=== PATIENT | male | born 1950 | race Caucasian/White ===

== ENCOUNTER 2020-08-04 09:14 | Outpatient (REF) | payer MEDICARE, SELFPAY ==
[2020-08-04 11:24] LABS: Prostate Specific Antigen < 0.05 ng/mL (<0.05-4.0)
== END 2020-08-04 09:15 | disposition home or self-care (01) ==
LOC: HO.10HDL 09:14
PROVIDERS: Visit Provider Urology
DX: C61 Malignant neoplasm of prostate (principal); Z12.5 Encounter for screening for malignant neoplasm of prostate
CPT/HCPCS: 84153

== ENCOUNTER 2020-10-23 09:12 | Outpatient (REF) | payer MEDICARE, SELFPAY ==
[2020-10-23 10:51] LABS: Prostate Specific Antigen < 0.05 ng/mL (<0.05-4.0)
== END 2020-10-23 09:13 | disposition home or self-care (01) ==
LOC: HO.10HDL 09:12
DX: Z12.5 Encounter for screening for malignant neoplasm of prostate (principal)
CPT/HCPCS: 36415; 84153

== ENCOUNTER 2020-11-30 08:36 | Outpatient (REF) | payer MEDICARE, SELFPAY ==
[2020-11-30 12:42] LABS: Prostate Specific Antigen < 0.05 ng/mL (<0.05-4.0)
== END 2020-11-30 08:37 | disposition home or self-care (01) ==
LOC: HO.10HDL 08:36
PROVIDERS: Visit Provider Urology
DX: Z12.5 Encounter for screening for malignant neoplasm of prostate (principal); C61 Malignant neoplasm of prostate
CPT/HCPCS: 36415; 84153

== ENCOUNTER → 2020-12-08 15:31 | Outpatient (BNVA) | payer MEDICARE, SELFPAY | PROVIDERS: PCP Family Medicine; Visit Provider Urology | DX: C61 Malignant neoplasm of prostate (principal) | CPT/HCPCS: Q3014 ==

== ENCOUNTER 2021-05-31 12:53 | Outpatient (REF) | payer MEDICARE, SELFPAY ==
[2021-05-31 15:02] LABS: Prostate Specific Antigen < 0.05 ng/mL (<0.05-4.0)
== END 2021-05-31 12:54 | disposition home or self-care (01) ==
LOC: HO.10HDL 12:53
PROVIDERS: Visit Provider Urology
DX: N13.8 Other obstructive and reflux uropathy (principal); N40.1 Benign prostatic hyperplasia with lower urinary tract symptoms; C61 Malignant neoplasm of prostate
CPT/HCPCS: 36415; 84153

== ENCOUNTER → 2021-06-08 14:36 | Outpatient (BNVA) | payer MEDICARE, SELFPAY | PROVIDERS: Visit Provider Urology | DX: C61 Malignant neoplasm of prostate (principal) | CPT/HCPCS: Q3014 ==

== ENCOUNTER 2021-11-29 08:51 | Outpatient (REF) | payer MEDICARE, SELFPAY ==
[2021-11-29 11:39] LABS: Prostate Specific Antigen < 0.05 ng/mL (<0.05-4.0)
== END 2021-11-29 08:52 | disposition home or self-care (01) ==
LOC: HO.10HDL 08:51
PROVIDERS: Visit Provider Urology
DX: Z12.5 Encounter for screening for malignant neoplasm of prostate (principal); C61 Malignant neoplasm of prostate
CPT/HCPCS: 36415; 84153

== ENCOUNTER → 2021-12-07 12:16 | Outpatient (BNVA) | payer MEDICARE, SELFPAY | PROVIDERS: PCP Family Medicine; Visit Provider Urology | DX: C61 Malignant neoplasm of prostate (principal) | CPT/HCPCS: Q3014 ==

== ENCOUNTER 2022-04-02 07:50 | Outpatient (REF) | payer MEDICARE, SELFPAY ==
[2022-04-02 09:47] LABS: Prostate Specific Antigen < 0.05 ng/mL (<0.05-4.0)
== END 2022-04-02 07:51 | disposition home or self-care (01) ==
LOC: HO.10HDL 07:50
PROVIDERS: Visit Provider Urology
DX: Z12.5 Encounter for screening for malignant neoplasm of prostate (principal); C61 Malignant neoplasm of prostate
CPT/HCPCS: 36415; 84153

== ENCOUNTER → 2022-04-10 11:21 | Outpatient (BNVA) | payer MEDICARE, SELFPAY | PROVIDERS: PCP Family Medicine; Visit Provider Urology | DX: C61 Malignant neoplasm of prostate (principal) | CPT/HCPCS: Q3014 ==

== ENCOUNTER 2022-09-30 09:19 | Outpatient (REF) | payer MEDICARE, SELFPAY ==
[2022-09-30 12:07] LABS: Prostate Specific Antigen < 0.10 ng/mL (<0.05-4.0)
== END 2022-09-30 09:20 | disposition home or self-care (01) ==
LOC: HO.10HDL 09:19
PROVIDERS: Visit Provider Urology
DX: Z12.5 Encounter for screening for malignant neoplasm of prostate (principal); C61 Malignant neoplasm of prostate
CPT/HCPCS: 36415; 84153

== ENCOUNTER → 2022-10-09 15:17 | Outpatient (BNVA) | payer MEDICARE, SELFPAY | PROVIDERS: PCP Family Medicine; Visit Provider Urology | DX: C61 Malignant neoplasm of prostate (principal) | CPT/HCPCS: 99212 ==

== ENCOUNTER 2023-06-02 08:38 | Outpatient (REF) | payer MEDICARE, SELFPAY ==
[2023-06-02 11:29] LABS: Prostate Specific Antigen < 0.10 ng/mL (<0.05-4.0)
== END 2023-06-02 08:39 | disposition home or self-care (01) ==
LOC: HO.10HDL 08:38
PROVIDERS: Visit Provider Urology
DX: C61 Malignant neoplasm of prostate (principal); Z12.5 Encounter for screening for malignant neoplasm of prostate
CPT/HCPCS: 36415; 84153

== ENCOUNTER 2023-06-10 13:51 | Outpatient (AMB) | payer MEDICARE, SELFPAY ==
--- NOTE | 2023-06-10 14:04 | A.OFFVIS_ITS ---
Intake Intake Visit Reasons: 6M PSA(set) Intake Note: Patient is present for Follow Up PSA Urology Med: None Antibiotic Allergy: None Blood Thinner: Apixaban [facility]: [facility] Allergies acetaminophen [Percocet] Allergy (Unknown, Verified 06/10/23 14:05) Unknown ibuprofen Allergy (Unknown, Verified 06/10/23 14:05) kidney shuts down oxycodone [Percocet] Allergy (Unknown, Verified 06/10/23 14:05) Unknown bee stings Allergy (Unknown, Uncoded 06/10/23 14:05) Unknown Medication List - Last Reconciled 06/10/23 by Jem Smith MD allopurinol 300 mg PO DAILY amlodipine 15 mg PO Q OTHER DAY PRN apixaban 5 mg PO BID empagliflozin (Jardiance) 10 mg PO DAILY furosemide mg PO lisinopril 40 mg PO DAILY metformin ER 500 mg PO DAILY rosuvastatin 20 mg PO BEDTIME sotalol mg PO HPI HPI Comments History of Present Illness Details Bryan is a very pleasant male. He is a patient of Dr. Johnson. He is seen for following urologic conditions - prostate cancer PSA remains in good control <0.1 6 month follow-up Urinary control no leakage Does have CKD. Followed by Nephrology. Noted to have proteinuria. Has been placed on Jardiance. Discussed risk for urinary tract infection and importance of maintaining fluid intake Prostate cancer robotic prostatectomy January 2018 grade group 3 First diagnosed early 2017 Underwent robotic assisted laparoscopic prostatectomy at [facility] 01/30/2018 Final pathology [facility] 7 = 4+3 Follow-up PSA - 05/01 < 0.1 - 12/03 <0.1, 06/02 <0.1, 12/04 <0.1, 04/03 <0.1, 10/03 <0.1, 06/04 <0.1 Good control of PSA Continue with 6 monthly surveillance [facility] Medical History Elevated PSA Prostate cancer Retention of urine Surgical History History of prostatectomy Review of Systems Const Denies chills and Denies fever(s) Card Reports no additional complaints and Denies syncope Resp Denies cough GI Denies abdominal pain and Denies heartburn Reports as per HPI and Denies change in libido Neuro Denies syncope Psych Denies change in libido Endo Denies change in libido Physical Exam Const General: cooperative, healthy appearing, comfortable and no acute distress Orientation/consciousness: patient oriented x3 HEENT Face and sinus: Yes normal facial exam Mouth: moist mucous membranes Neck Neck: Yes normal visual inspection, Yes full ROM and Yes trachea midline Chest Chest palpation & inspection: normal inspection of the chest Resp Effort & Inspection: normal respiratory effort, able to speak in complete sentences and no respiratory distress GI Inspection: Yes normal to inspection Back/Spine/Pelvis Cervical Spine: normal cervical lordosis Thoracic/Lumbar Spine: thoracic and lumbar spine normal to inspection Skin General skin exam: no rashes or lesions noted Neuro General: patient oriented x3, gait normal, tone normal and moves all extremities Extrem General: Yes normal to inspection and Yes capillary refill normal Assessment & Plan Assessment & Plan (1) Prostate cancer: Comment: Grade group 3, robotic prostatectomy 2017 [facility] Code(s): C61 - Malignant neoplasm of prostate Plan Six month follow-up PSA Orders: Orders Prostate Specific Antigen 6 Months C61 - Malignant neoplasm of prostate Patient Instructions: Imaging studies, laboratory and physical exam results were discussed and reviewed in detail. No major barriers to patient understanding were identified. An opportunity to ask questions regarding the treatment plan was provided. All questions were answered. The patient expressed understanding and agreement with the above treatment plan. The patient is aware they should contact our office by phone for worsening of their current condition or the appearance of new urologic symptoms. Compliance is encouraged with any medications and followup testing that is ordered. It is a privilege to participate in the urologic care of your patient. If you have any questions or concerns regarding treatment for the above conditions, or other urologic issues, please do not hesitate to contact me. The office telephone contact is [phone]. This note is constructed using voice recognition software. While every effort has been made to ensure accuracy subsurface augmentee operator errors may have been included. Yours sincerely, Dr Jem Smith MD, [facility] - Urology Providers of Expert, Compassionate Care for the Genitourinary System Coding Level of Care Code Est Pt Level 3 (02542) Diagnoses Prostate cancer C61
== END 2023-06-10 14:46 | disposition home or self-care (01) ==
PROVIDERS: PCP Family Medicine; Visit Provider Urology
DX: C61 Malignant neoplasm of prostate (principal)
CPT/HCPCS: 99213

== ENCOUNTER → 2023-06-10 13:51 | Outpatient (BNVA) | payer MEDICARE, SELFPAY | PROVIDERS: Visit Provider Urology | DX: C61 Malignant neoplasm of prostate (principal) | CPT/HCPCS: 99212 ==

== ENCOUNTER 2023-11-28 11:50 | Outpatient (REF) | payer MEDICARE, SELFPAY ==
[2023-11-28 14:03] LABS: Prostate Specific Antigen < 0.10 ng/mL (<0.05-4.0)
== END 2023-11-28 11:51 | disposition home or self-care (01) ==
LOC: HO.10HDL 11:50
PROVIDERS: Visit Provider Urology
DX: C61 Malignant neoplasm of prostate (principal); Z12.5 Encounter for screening for malignant neoplasm of prostate
CPT/HCPCS: 36415; 84153

== ENCOUNTER 2023-12-10 12:44 | Outpatient (AMB) | payer MEDICARE, SELFPAY ==
--- NOTE | 2023-12-10 12:46 | A.OFFVIS_ITS ---
Intake Intake Visit Reasons: 6M PSA(set)Confirmed Intake Note: Patient presents today for a telehealth follow-up Meds- None Allergies to Antibiotic- No Known Allergies Blood Thinner- Eliquis Medications has been reviewed, and patient is unsure about doses. Kindergarten Teacher Required: No Allergies acetaminophen [Percocet] Allergy (Unknown, Verified 12/10/23 12:47) Unknown ibuprofen Allergy (Unknown, Verified 12/10/23 12:47) kidney shuts down oxycodone [Percocet] Allergy (Unknown, Verified 12/10/23 12:47) Unknown bee stings Allergy (Unknown, Uncoded 12/10/23 12:47) Unknown Medication List - Last Reconciled 12/10/23 by Jem Smith MD allopurinol 300 mg PO DAILY amlodipine 15 mg PO Q OTHER DAY PRN apixaban 5 mg PO BID empagliflozin (Jardiance) 10 mg PO DAILY furosemide mg PO lisinopril 40 mg PO DAILY metformin ER 500 mg PO DAILY rosuvastatin 20 mg PO BEDTIME HPI HPI Comments History of Present Illness Details Bryan is a very pleasant male. He is a patient of Dr. Johnson. He is seen for following urologic conditions - prostate cancer Telemedicine Evaluation 15 min Consultation Doximity Santi Video attempted PSA remains in good control <0.1 6 month follow-up Urinary control no leakage Does have CKD. Followed by Nephrology. Prostate cancer robotic prostatectomy January 2018 grade group 3 First diagnosed early 2017 Underwent robotic assisted laparoscopic prostatectomy at [facility] 01/30/2018 Final pathology [place] 7 = 4+3 Follow-up PSA - 05/01 < 0.1, 12/03 <0.1, 06/02 <0.1, 12/04 <0.1, 04/03 <0.1, 10/03 <0.1, 06/04 <0.1, 12/06 <0.1 Good control of PSA Continue with 6 monthly surveillance [facility] Medical History Prostate cancer Elevated PSA Retention of urine Surgical History History of prostatectomy Review of Systems Const All systems reviewed & are unremarkable except as noted in HPI and below Reports no additional complaints Resp Reports no additional complaints GI Reports no additional complaints Reports as per HPI Musc Reports no additional complaints Physical Exam Telemedicine evaluation Appropriate responses Regular breathing rate and rhythm HEENT Head: Yes normal to inspection Ears: hearing grossly normal bilaterally Eyes General: appearance normal, both eyes and all related structures Neck Neck: Yes normal visual inspection Chest Chest palpation & inspection: normal inspection of the chest Resp Effort & Inspection: normal respiratory effort and able to speak in complete sentences Assessment & Plan Assessment & Plan (1) Prostate cancer: Comment: Grade group 3, robotic prostatectomy 2018 [facility] Code(s): C61 - Malignant neoplasm of prostate Plan Six-month follow-up PSA Orders: Orders Prostate Specific Antigen 6 Months C61 - Malignant neoplasm of prostate Patient Instructions: Imaging studies, laboratory and physical exam results were discussed and reviewed in detail. No major barriers to patient understanding were identified. An opportunity to ask questions regarding the treatment plan was provided. All questions were answered. The patient expressed understanding and agreement with the above treatment plan. The patient is aware they should contact our office by phone for worsening of their current condition or the appearance of new urologic symptoms. Compliance is encouraged with any medications and followup testing that is ordered. It is a privilege to participate in the urologic care of your patient. If you have any questions or concerns regarding treatment for the above conditions, or other urologic issues, please do not hesitate to contact me. The office telephone contact is [phone]. This note is constructed using voice recognition software. While every effort has been made to ensure accuracy breaker machine tender errors may have been included. Yours sincerely, Dr Jem Smith MD, [facility] - Urology Providers of Expert, Compassionate Care for the Genitourinary System Telehealth Telehealth Location of provider rendering services: practice address Location of patient: address on file Patient Identification confirmed using: Name, : Yes Telehealth method: video Patient verbally consented to treatment: Yes Patient verbally consented to billing insurance company: Yes Patient informed of any privacy concerns related to visit: Yes Coding Level of Care Code Tele Est Pt Level 3 (99318) Diagnoses Prostate cancer C61
== END 2023-12-10 14:11 | disposition home or self-care (01) ==
LOC: HO.HUSH 12:45
PROVIDERS: PCP Family Medicine; Visit Provider Urology
DX: C61 Malignant neoplasm of prostate (principal)
CPT/HCPCS: 99213

== ENCOUNTER → 2023-12-10 12:44 | Outpatient (BNVA) | payer MEDICARE, SELFPAY | PROVIDERS: PCP Family Medicine; Visit Provider Urology ==

== ENCOUNTER 2024-06-04 07:40 | Outpatient (REF) | payer MEDICARE, SELFPAY ==
[2024-06-04 09:25] LABS: Prostate Specific Antigen < 0.10 ng/mL (<0.05-4.0)
== END 2024-06-04 07:41 | disposition home or self-care (01) ==
LOC: HO.LAB 07:40
PROVIDERS: PCP Internal Medicine; Visit Provider Urology
DX: C61 Malignant neoplasm of prostate (principal); Z12.5 Encounter for screening for malignant neoplasm of prostate
CPT/HCPCS: 36415; 84153

== ENCOUNTER 2024-06-11 14:07 | Outpatient (AMB) | payer MEDICARE, SELFPAY ==
--- NOTE | 2024-06-11 14:50 | A.OFFVIS_ITS ---
Intake Visit Reasons: 6m/PSA(set) Intake Note: Patient is Present for Follow Up PSA PSA Result: 06/04/24 <0.10 Urology Medication: None Antibiotic Allergies: None Blood Thinners:Apixaban Patient is on Jardiance Software Consultant Required: No Accompanied by: Self / Same As Patient Allergies acetaminophen [Percocet] Allergy (Unknown, Verified 06/11/24 14:53) Unknown ibuprofen Allergy (Unknown, Verified 06/11/24 14:53) kidney shuts down oxycodone [Percocet] Allergy (Unknown, Verified 06/11/24 14:53) Unknown bee stings Allergy (Unknown, Uncoded 06/11/24 14:53) Unknown HPI Comments Details: Bryan is a very pleasant male. He is a patient of Dr. Johnson. He is seen for following urologic conditions - prostate cancer PSA remains in good control <0.1 6 month follow-up Urinary control no leakage Does have CKD. Followed by Nephrology. Prostate cancer robotic prostatectomy January 2018 grade group 3 First diagnosed early 2017 Underwent robotic assisted laparoscopic prostatectomy at [facility] 01/30/2018 Final pathology [place] 7 = 4+3 Follow-up PSA - 05/01 < 0.1, 12/03 <0.1, 06/02 <0.1, 12/04 <0.1, 04/03 <0.1, 10/03 <0.1, 06/04 <0.1, 12/06 <0.1, 06/05 <0.1 Good control of PSA Continue with 6 monthly surveillance [facility] Medical History Prostate cancer Elevated PSA Retention of urine Surgical History History of prostatectomy Review of Systems Const Denies chills and Denies fever(s) Card Reports no additional complaints and Denies syncope Resp Denies cough GI Denies abdominal pain and Denies heartburn Reports as per HPI and Denies change in libido Neuro Denies syncope Psych Denies change in libido Endo Denies change in libido Physical Exam Const General: cooperative, healthy appearing, comfortable and no acute distress Orientation/consciousness: patient oriented x3 HEENT Face and sinus: Yes normal facial exam Mouth: moist mucous membranes Neck Neck: Yes normal visual inspection, Yes full ROM and Yes trachea midline Chest Chest palpation & inspection: normal inspection of the chest Resp Effort & Inspection: normal respiratory effort, able to speak in complete sentences and no respiratory distress GI Inspection: Yes normal to inspection Back/Spine/Pelvis Cervical Spine: normal cervical lordosis Thoracic/Lumbar Spine: thoracic and lumbar spine normal to inspection Skin General skin exam: no rashes or lesions noted Neuro General: patient oriented x3, gait normal, tone normal and moves all extremities Extrem General: Yes normal to inspection and Yes capillary refill normal Assessment & Plan Assessment & Plan (1) Prostate cancer: Comment: Grade group 3, robotic prostatectomy 2017 [facility] Code(s): C61 - Malignant neoplasm of prostate Category: Medical Plan Six-month follow-up PSA tele Orders: Orders Prostate Specific Antigen 6 Months C61 - Malignant neoplasm of prostate Patient Instructions: Imaging studies, laboratory and physical exam results were discussed and reviewed in detail. No major barriers to patient understanding were identified. An opportunity to ask questions regarding the treatment plan was provided. All questions were answered. The patient expressed understanding and agreement with the above treatment plan. The patient is aware they should contact our office by phone for worsening of their current condition or the appearance of new urologic symptoms. Compliance is encouraged with any medications and followup testing that is ordered. It is a privilege to participate in the urologic care of your patient. If you have any questions or concerns regarding treatment for the above conditions, or other urologic issues, please do not hesitate to contact me. The office telephone contact is [phone]. This note is constructed using voice recognition software. While every effort has been made to ensure accuracy integrated specialist errors may have been included. Yours sincerely, Dr Jem Smith MD, [facility] - Urology Providers of Expert, Compassionate Care for the Genitourinary System Coding Level of Care Code Est Pt Level 3 (71111) Diagnoses Prostate cancer C61
== END 2024-06-11 15:14 | disposition home or self-care (01) ==
PROVIDERS: PCP Family Medicine; Visit Provider Urology
DX: C61 Malignant neoplasm of prostate (principal)
CPT/HCPCS: 99213

== ENCOUNTER → 2024-06-11 14:07 | Outpatient (BNVA) | payer MEDICARE, SELFPAY | PROVIDERS: PCP Family Medicine; Visit Provider Urology | DX: C61 Malignant neoplasm of prostate (principal) | CPT/HCPCS: 99212 ==

== ENCOUNTER 2024-12-28 08:01 | Outpatient (REF) | payer MEDICARE, SELFPAY ==
[2024-12-28 10:54] LABS: Prostate Specific Antigen < 0.10 ng/mL (<0.05-4.0)
== END 2024-12-28 08:02 | disposition home or self-care (01) ==
LOC: HO.10HDL 08:01
PROVIDERS: Visit Provider Urology
DX: C61 Malignant neoplasm of prostate (principal); Z12.5 Encounter for screening for malignant neoplasm of prostate
CPT/HCPCS: 36415; 84153

== ENCOUNTER 2025-01-04 13:51 | Outpatient (AMB) | payer MEDICARE, SELFPAY ==
--- NOTE | 2025-01-04 13:52 | MHC.OFFVIS ---
Intake Visit Reasons: 6m/PSA Intake Note: Patient is present for 6M/PSA Urology Medication:ALLOPURINOL Antibiotic Allergy:NONE Blood Thinner:APIXABAN Optical Engineering Manager Required: No Allergies acetaminophen [Percocet] Allergy (Unknown, Verified 01/04/25 13:58) Unknown ibuprofen Allergy (Unknown, Verified 01/04/25 13:58) kidney shuts down oxycodone [Percocet] Allergy (Unknown, Verified 01/04/25 13:58) Unknown bee stings Allergy (Unknown, Uncoded 01/04/25 13:58) Unknown HPI Comments Details: Bryan is a very pleasant male. He is a patient of Dr. Johnson. He is seen for following urologic conditions - prostate cancer Telemedicine Evaluation 15 min Consultation Doximity Santi Video PSA remains in good control <0.1 Urinary control - occasional stress leakage but not serious Does have CKD. Followed by Nephrology. Prostate cancer robotic prostatectomy January 2018 grade group 3 First diagnosed early 2017 Underwent robotic assisted laparoscopic prostatectomy at [facility] 01/30/2018 Final pathology [facility] 7 = 4+3 Follow-up PSA - / < 0.1, 2/ <0.1, / <0.1, 2/ <0.1, 6/ <0.1, 10/03 <0.1, 06/04 <0.1, 2/ <0.1, 8/ <0.1, 01/04 <0.1 Good control of PSA Twelve month follow-up PSA PFSH Medical History Prostate cancer Elevated PSA Retention of urine Surgical History History of prostatectomy Review of Systems Const All systems reviewed & are unremarkable except as noted in HPI and below Reports no additional complaints Resp Reports no additional complaints GI Reports no additional complaints Reports as per HPI Musc Reports no additional complaints Physical Exam Telemedicine evaluation Appropriate responses Regular breathing rate and rhythm HEENT Head: Yes normal to inspection Ears: hearing grossly normal bilaterally Eyes General: appearance normal, both eyes and all related structures Neck Neck: Yes normal visual inspection Chest Chest palpation & inspection: normal inspection of the chest Resp Effort & Inspection: normal respiratory effort and able to speak in complete sentences Telehealth Telehealth Telehealth Platform: Tangler Location of provider rendering services: practice address Location of patient: address on file Patient Identification confirmed using: Name, : Yes Telehealth method: video Patient verbally consented to treatment: Yes Patient verbally consented to billing insurance company: Yes Patient informed of any privacy concerns related to visit: Yes Minutes spent on Phone/Video with Pt.: 15 Assessment & Plan Assessment & Plan (1) Prostate cancer: Comment: Grade group 3, robotic prostatectomy 2017 [facility] Code(s): C61 - Malignant neoplasm of prostate Category: Medical Plan Twelve month follow-up PSA Patient Instructions: This note is constructed using voice recognition software. While every effort has been made to ensure accuracy claims agent right of way errors may have been included. Imaging studies, laboratory and physical exam results were discussed and reviewed in detail. No major barriers to patient understanding were identified. An opportunity to ask questions regarding the treatment plan was provided. All questions were answered. The patient expressed understanding and agreement with the above treatment plan. The patient is aware they should contact our office by phone for worsening of their current condition or the appearance of new urologic symptoms. Compliance is encouraged with any medications and followup testing that is ordered. It is a privilege to participate in the urologic care of your patient. If you have any questions or concerns regarding treatment for the above conditions, or other urologic issues, please do not hesitate to contact me. The office telephone contact is [phone]. Sincerely, Dr Jem Smith MD, [facility] - Urology Compassionate Specialist Care for the Genitourinary System Coding Level of Care Code Tele Est Pt Level 3 (74688) Complex EM visit Add On G2211 Diagnoses Prostate cancer C61
--- OUTSIDE RECORDS SUMMARY | 2025-01-04 17:11 | XMS_ITS | Encounter Summary ---
Author Organization [facility], Address [address] [place] [address] Phone Care Team Providers Care Lens Examiner Name Role Phone Pallavi Johnson MD Primary Care Provider [phone] Encounter Details Date Type Department Care Team (Late st Contact Info) Description 12/06/2024 Documentation Only [facility] [address] [place] [address] Anamaria Chirinos [address] [place] [address] Social History Tobacco Use Types Packs/Day Years Used Date Smoking Tobacco: Former Cigarettes Q uit: 10/13/1989 Comments:Smoking History Inf o:Every day Alcohol Use Standard Drinks/Week Comments Yes 0 (1 standard drink = 0.6 oz pure alcohol) Alcoholic Drinks/day: Occasional social drink Sex and Gender Information Value Date Recorded Sex Assigned at Not on file Legal Sex Male 4:32 PM EST Gender Identity Not on file Sexual Orientation Not on file documented as of this encounter Plan of Treatment Upcoming Encounters Date Type Department Care Team (Late st Contact Info) Description 06/06/2025 3:00 PM EDT Office Visit [facility] [address] [place] [address] Colin Jones MD [address] [place] [address] documented as of this encounter Visit Diagnoses Not on filedocumented in this encounter Care Teams Lens Examiner Relationship Specialty Start Date End Date Pallavi Johnson MD [address] [place] [id number] PCP - General 08/17/19 documented as of this encounter
--- OUTSIDE RECORDS SUMMARY | 2025-01-04 17:11 | XMS_ITS | Clinical Summary ---
Author Organization [facility], Address [address] [place] [address] [place] [address] Phone Care Team Providers Care Entry Specialist Name Role Phone Pallavi Johnson MD Primary Care Provider [phone] Allergies Active Allergy Reactions Criticality Noted Date Comments Bee Venom Anaphylaxis High 06/25/2017 Ibuprofen Other (see comments) 03/05/2018 CKD Nsaids 11/22/2019 Oxycodone 01/27/2024 CAUSES HALLUCINATIONS Oxycodone-Acetamino phen Other (see comments) 11/22/2019 Medications allopurinol (ZYLOPRIM) 300 MG tablet Take 300 mg by mouth 1 (one) time each day 0 Active amLODIPine (NORVASC) 5 MG tablet Take 5 mg by mouth 1 (one) time each day Active furosemide (LASIX) 40 MG tablet Take 40 mg by mouth in the morning and 40 mg in the evening. Active rosuvastatin (CRESTOR) 20 MG tablet Take 20 mg by mouth 1 (one) time each day 1 Active ferrous sulfate 325 (65 Fe) MG EC tablet Take 325 mg by mouth 1 (one) time each day with breakfast Active Cholecalciferol 50 MCG (1999 UT) capsule Take 2,000 Units by mouth 1 (one) time each day Active Eliquis 5 MG tablet Take 5 mg by mouth in the morning and 5 mg in the evening. 1 Active metFORMIN XR (GLUCOPHAGE-XR) 500 MG 24 hr tablet 2 Active aspirin (ST PACHECO) 81 MG EC tablet Take 81 mg by mouth 1 (one) time each day Active Coenzyme Q10 (Co Q 10) 100 MG capsule Take 100 mg by mouth 1 (one) time each day Active Bolton-3 Fatty Acids (Fish Oil Burp-Less) 1000 MG capsule Take 1,000 mg by mouth in the morning and 1,000 mg in the evening. Active Multiple Vitamin (multivitamin) capsule Take 1 capsule by mouth 1 (one) time each day Active lisinopril 40 MG tablet TAKE 1 TABLET DAILY 90 tablet 3 4 Active Jardiance 25 MG tablet TAKE 1 TABLET ONE TIME EACH DAY IN THE MORNING 90 tablet 3 4 Active Active Problems Problem Noted Date Diagnosed Date Type 2 diabetes mellitus 01/27/2024 Prostate specific antigen above reference range 01/27/2024 Hypertriglyceridemia 01/27/2024 Gout 01/27/2024 Essential hypertension 01/27/2024 Stage 3b chronic kidney disease 01/27/2024 Proteinuria 11/22/2019 Hyperlipidemia 02/06/2018 Resolved Problems Problem Noted Date Diagnosed Date Resolved Date History of coronary artery bypass grafting 06/25/2019 05/01/2020 History of radical prostatectomy 06/26/2018 05/01/2020 Coronary arteriosclerosis 02/06/2018 Atrial fibrillation 02/06/2018 05/01/20 Hypertension 02/06/2018 05/01/2020 Malignant neoplasm of prostate 02/06/2018 05/01/2020 Prediabetes 02/06/2018 05/01/2020 Deep venous thrombosis of le ft lower extremity 06/25/2017 05/01/2020 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 06/25/2017 05/01/2020 [place]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 Encounters Date Type Department Care Team Description 12/06/2024 1:30 PM EST Office Visit [facility] [address] [place] [address] Colin Jones MD Chronic kidney disease due to hypertension (Primary Dx) 12/06/2024 Documentation Only [facility] [address] [place] [address] Anamaria Chirinos 12/06/2024 Documentation Only [facility] [address] [place] [phone] Taran, Anamaria 12/03/2024 Documentation Only [facility] [address] [place] [address] Taran, Anamaria 12/03/2024 Documentation Only [facility] [address] [place] [address] Taran, Anamaria 12/03/2024 Documentation Only [facility] [address] [place] [phone] Taran, Anamaria 12/03/2024 Documentation Only [facility] [address] [place] [address] Taran, Anamaria from Last 3 Months Immunizations Name Administration Dates Next Due Influenza Whole 08/01/2018 Influenza, Trivalent, Adjuvanted 05/31/2019 Influenza, Unspecified 07/23/2022,07/19/2021,04/2020 Pfizer SARS-COV-2 08/30/2021,01/22/2021,01/02/20 21 Pneumococcal Conjugate 13-Valent 12/31/2016 Pneumococcal Polysaccharide 01/06/2018 SARS-CoV-2, Unspecified 05/25/2022 Shingrix 12/11/2019,05/31/2019 Td, Unspecified 11/28/2023,01/12/2007 Zoster 12/11/2019,05/31/2019 Family History Medical History Relation Comments Coronary artery disease Father Dementia Father Diabetes type II Father Relation Status Comments Father Unknown Mother Unknown Social History Tobacco Use Types Packs/Day Years [...] on file Sexual Orientation Not on file Last Filed Vital Signs Vital Sign Reading Time Taken Comments Blood Pressure 144/76 12/06/2024 1:50 PM EST Pulse 79 12/06/2024 1:50 PM EST Temperature - - Respiratory Rate - - Oxygen Saturation - - Inhaled Oxygen Concentration - - Weight 99.8 kg (220 lb) 02/03/2024 3:18 PM EDT Height 165.1 cm (5' 5 ) 06/08/2019 12:00 PM EDT Body Mass Index 36.61 06/08/2019 12:00 PM EDT Plan of Treatment Upcoming Encounters Date Type Department Care Team (Late st Contact Info) Description 06/06/2025 3:00 PM EDT Office Visit [facility] [place], [address] [place] [address] Colin Jones MD [address] [facility] [address] [place] [phone] Health Maintenance Due Date Last Done Comments Colorectal Cancer Screening: Annual FOBT 2000 Colorectal Cancer Screening: Colonoscopy 2000 Colorectal Cancer Screening: Sigmoidoscopy 2000 Diabetes: Ophthalmology Exam 11/22/2019 Diabetes: Pedal Pulse Checked 11/22/2019 Diabetes: Sensory Foot Exam 11/22/2019 Diabetes: Visual Foot Exam 11/22/2019 Diabetes: Hemoglobin A1C 04/18/2022 022, 01/18/2021, 11/16/2019 Influenza Vaccine (#1) 2024 2, 07/19/2021, 07/19/2020, Additional history exists Pneumococcal Vaccine: 65+ Years Completed 01/06/2018, 12/31/2016 Hepatitis B Vaccine Aged Out No longe r eligible based on patient's age to complete this topic Procedures Procedure Name Priority Date/Time Associated Diagnosis Comments URINE ALBUMIN / CREATININE RATIO Routine 12/08/2024 10:24 AM EST Chronic kidney disease due to hypertension VITAMIN D 25 HYDROXY Routine 12/08/2024 10:24 AM EST Chronic kidney disease due to hypertension PROTEIN / CREATININE RATIO, URINE Routine 12/08/2024 10:24 AM EST Chronic kidney disease due to hypertension URINALYSIS WITH MICROSCOPIC Routine 12/08/2024 10:24 AM EST Chronic kidney disease due to hypertension RENAL FUNCTION PANEL Routine 12/08/2024 10:24 AM EST Chronic kidney disease due to hypertension PTH, INTACT Routine 12/08/2024 10:24 AM EST Chronic kidney disease due to hypertension IRON PANEL (FE, TIBC, TSAT) Routine 12/08/2024 10:24 AM EST Chronic kidney disease due to hypertension FERRITIN Routine 12/08/2024 10:24 AM EST Chronic kidney disease due to hypertension CBC AND DIFFERENTIAL Routine 12/08/2024 10:24 AM EST Chronic kidney disease due to hypertension MICROSCOPIC EXAMINATION - DO NOT USE Routine 12/08/2024 10:24 AM EST HEMOGLOBIN A1C Routine 01/17/2022 2:30 PM EDT Chronic kidney disease due to hypertension from Last 3 Months or Most Recently Relevant to Health Maintenance Results * Microscopic Examination (12/08/2024 10:24 AM EST) WBC, Urine None seen 0 - 5 /hpf [facility] RBC, Urine None seen 0 - 2 /hpf [facility] [place] [facility] Squamous Epithelial, Urine None seen 0 - 10 /hpf [facility] [place] [facility] Casts None seen None seen /lpf [facility] Bacteria, Urine None seen None seen/Few [facility] [place] [facility] 12/08/2024 10:2 4 AM EST 12/08/2024 us Colin Jones MD LAB MICROBIOLOGY - GENERAL OR DERABLES Final Result [facility] [address] [place] [address] * Iron Panel (Fe, TIBC, TSAT) (12/08/2024 10:24 AM EST) TIBC 352 250 - 450 ug/dL [facility] UIBC 277 111 - 343 ug/dL [facility] [place] [facility] Iron 75 38 - 169 ug/dL [facility] Iron Saturation (TSat) 21 15 - 55 % [facility] Blood (Blood, Venous) 12/08/2024 10:24 AM EST 12/08/2024 Colin Jones MD LAB BLOOD ORDERABLES Final Re sult Performing Organization Address [facility]/ZIP Co de Phone Number [facility] [place] [address] [place] [address] * (ABNORMAL) Protein, Total, Random Urine w/Creatinine (Protein/Creat Ratio) (12/08/2024 10:24 AM EST) Creatinine, Ur 20.9 Not Estab. mg/dL [facility] Protein, Ur 94.7 Not Estab. mg/dL [facility] Urine Protein/Creati nine Ratio 4,531(H) 0 - 200 mg/g creat [facility] [place] Urine (Urine, Clean Catch) 12/08/2024 10:24 AM EST 12/08/2024 Colin Jones MD LAB URINE ORDERABLES Final Re sult Performing Organization Address City/[facility]/ZIP Co de Phone Number [facility] [place] [address] [place] [address] * (ABNORMAL) Urine Albumin / Creatinine Ratio (12/08/2024 10:24 AM EST) Albumin, Urine 547.7 Not Estab. ug/mL [facility] Comment: Results confirmed on dilution. Albumin/Creatin ine Ratio 2,621(H) 0 - 29 mg/g creat [facility] Comment: ? Normal: ?0 - ??29 ? Moderately increased: 30 - 300 ? Severely increased: ? >300 Urine (Urine, Clean Catch) 12/08/2024 10:24 AM EST 12/08/2024 us Colin Jones MD LAB URINE ORDERABLES Final Re sult [facility] [address] [place] [address] * Vitamin D 25 Hydroxy (12/08/2024 10:24 AM EST) Pathologist [facility] Vitamin D, 25-OH, Total 37.7 30.0 - 100.0 ng/mL [facility] Comment: Vitamin D deficiency has been defined by the [place] of Medicine and an Endocrine Society practice guideline as a level of serum 25-OH vitamin D less than 20 ng/mL (1,2). The Endocrine Society went on to further define vitamin D insufficiency as a level between 21 and 29 ng/mL (2). 1. IOM ([place] of Medicine). 2010. Dietary reference ?? intakes for calcium and D. [place]: The ?? National AcademLOG607 Press. 2. Brianna MF, Yosi ROGERS, Alexy MORALEZ, et al. ?? Evaluation, treatment, and prevention of vitamin D ?? deficiency: an Endocrine Society clinical practice ?? guideline. JCEM. 2011 Apr; 96(7):7411-30. Blood (Blood, Venous) 12/08/2024 10:24 AM EST 12/08/2024 Colin Jones MD LAB BLOOD ORDERABLES Final Re sult Performing Organization Address City/[facility]/ZIP Co de Phone Number [facility] [place] [facility] [address] [place] [address] * (ABNORMAL) Urinalysis with microscopic (12/08/2024 10:24 AM EST) Specific [place], Urine 1.010 1.005 - 1.030 [facility] pH Urine 6.5 5.0 - 7.5 [facility] Color, Urine Yellow Yellow [facility] [place] [facility] Appearance Urine Clear Clear [facility] [place] WBC Esterase Urine Negative Negative [facility] [place] [facility] [phone] Protein, Ur 2+(A) Negative/Tra ce [facility] [place] [facility] [phone] Glucose, Ur 2+(A) Negative [facility] [place] [facility] Ketones, Urine Negative Negative [facility] [place] Blood Urine Negative Negative [facility] [place] [facility] Bilirubin Urine Negative Negative [facility] [place] Urobilinogen Urine 0.2 0.2 - 1.0 mg/dL [facility] [place] [facility] Nitrite, Urine Negative Negative [facility] [place] Microscopic Examination See below: [facility] [place] [facility] Comment:Microscopic was winston cated and was performed. Urine (Urine, Clean Catch) 12/08/2024 10:24 AM EST 12/08/2024 Colin Jones MD LAB URINE ORDERABLES Final Re sult [facility] [address] [place] [address] * CBC and Differential (12/08/2024 10:24 AM EST) WBC 6.0 3.4 - 10.8 x10E3/uL [facility] RBC 5.28 4.14 - 5.80 x10E6/uL [facility] Hemoglobin 15.2 13.0 - 17.7 g/dL [facility] Hematocrit 46.7 37.5 - 51.0 % [facility] MCV 88 79 - 97 fL [facility] MCH 28.8 26.6 - 33.0 pg [facility] MCHC 32.5 31.5 - 35.7 g/dL [facility] RDW 14.8 11.6 - 15.4 % [facility] Platelets 183 150 - 450 x10E3/uL [facility] Neutrophils Relative 57 Not Estab. % [facility] Lymphocytes Relative 26 Not Estab. % [facility] Monocytes 12 Not Estab. % [facility] Eosinophils Relative 4 Not Estab. % [facility] Basophils Relative 1 Not Estab. % [facility] Neutrophils Absolute 3.4 1.4 - 7.0 x10E3/uL [facility] Lymphocytes Absolute 1.6 0.7 - 3.1 x10E3/uL [facility] Monocytes Absolute 0.7 0.1 - 0.9 x10E3/uL [facility] Eosinophils Absolute 0.2 0.0 - 0.4 x10E3/uL [facility] Basophils Absolute 0.1 0.0 - 0.2 x10E3/uL [facility] Immature Granulocytes 0 Not Estab. % [facility] Immature Grans (Absolute) 0.0 0.0 - 0.1 x10E3/uL [facility] Blood (Blood, Venous) 12/08/2024 10:24 AM EST 12/08/2024 Colin Jones MD LAB BLOOD ORDERABLES Final Re sult Performing Organization Address City/[facility]/ZIP Co de Phone Number [facility] [place] [address] [place] [address] * PTH, Intact (12/08/2024 10:24 AM EST) PTH 58 15 - 65 pg/mL [facility] Blood (Blood, Venous) 12/08/2024 10:24 AM EST 12/08/2024 Colin Jones MD LAB BLOOD ORDERABLES Final Re sult Performing Organization Address [facility]/ZIP Co de Phone Number [facility] [place] [facility] [address] [place] [address] * (ABNORMAL) Ferritin (12/08/2024 10:24 AM EST) Ferritin 22(L) 30 - 400 ng/mL [facility] Blood (Blood, Venous) 12/08/2024 10:24 AM EST 12/08/2024 Colin Jones MD LAB BLOOD ORDERABLES Final Re sult Performing Organization Address City/[facility]/ZIP Co de Phone Number [facility] [place] [facility] [address] [place] [address] * (ABNORMAL) Renal Function Panel (12/08/2024 10:24 AM EST) Pathologist [facility] Glucose 106(H) 70 - 99 mg/dL [facility] BUN 29(H) 8 - 27 mg/dL [facility] Creatinine 2.28(H) 0.76 - 1.27 mg/dL [facility] eGFR CKD-EPI CR 2020 30(L) >59 mL/min/1.7 3 [facility] BUN/Creatinine Ratio 13 10 - 24 [facility] Sodium 140 134 - 144 mmol/L [facility] Potassium 4.8 3.5 - 5.2 mmol/L [facility] Chloride 101 96 - 106 mmol/L [facility] Bicarbonate (CO2) 22 20 - 29 mmol/L [facility] Calcium 9.8 8.6 - 10.2 mg/dL [facility] Albumin 4.2 3.8 - 4.8 g/dL [facility] Phosphorus 2.9 2.8 - 4.1 mg/dL [facility] Blood (Blood, Venous) 12/08/2024 10:24 AM EST 12/08/2024 us Colin Jones MD LAB BLOOD ORDERABLES Final Re sult [facility] [address] [place] [address] * (ABNORMAL) Hemoglobin A1c (01/17/2022 2:30 PM EDT) Pathologist [facility] Hemoglobin A1C 6.0(H) (4.0-5.6) % [facility] Comment: MONITORING: In known diabetic patients, hemoglobin A1c targets should be discussed with health care provider. DIAGNOSTIC USE: ??The [place] Diabetes Association (ADA) and the World Health Organization (WHO) recommend the use of HbA1c to diagnose diabetes using a threshold of 6.5%. Patients who have an HbA1c between 5.7% and 6.4% are considered at increased risk for developing diabetes in the future. CAUTION: Falsely low HbA1c results may be observed in patients with hemolytic anemia, homozygous forms of abnormal hemoglobin (e.g. SS, CC, SC), , recent blood loss or hemoglobin F greater than 7%. Fructosamine may be used as an alternate test in these cases. REFERENCE: ADA: Standards of Medical Care in Diabetes 2020, The Journal of Clinical and Applied Research and Education Volume 43, Supplement 1 Testing performed or reported by [facility], a Service of [facility], [address] [place] [address] Alta Feliciano MD, Graphic Art Technician [facility]# [id number] Blood (Blood, Venous) 01/17/2022 2:30 PM EDT 01/17/2022 4:33 PM EDT us Colin Jones MD LAB BLOOD ORDERABLES Final Re sult [facility] from Last 3 Months or Most Recently Relevant to Health Maintenance Insurance MEDICARE [facility] Care Teams Entry Specialist Relationship Specialty Start Date End Date Pallavi Johnson MD [address] [place] [address] PCP - General 08/17/19
--- OUTSIDE RECORDS SUMMARY | 2025-01-04 17:11 | XMS_ITS | Encounter Summary ---
Author Organization [facility], Address [address] [place] [address] Phone Care Team Providers Care Professor Of Rhetoric Name Role Phone Pallavi Johnson MD Primary Care Provider [phone] Encounter Details Date Type Department Care Team (Late st Contact Info) Description 03/16/2024 Documentation Only [facility] [address] [place] [address] Anamaria Chirinos [address] [place] [address] Social History Tobacco Use Types [...] Visit [facility] [address] [place] [address] Colin Jones MD [address] [place] [address] documented as of this encounter Visit Diagnoses Not on filedocumented in this encounter Care Teams Professor Of Rhetoric Relationship Specialty Start Date End Date Pallavi Johnson MD [address] [place] [address] PCP - General 08/17/19 documented as of this encounter
--- OUTSIDE RECORDS SUMMARY | 2025-01-04 17:11 | XMS_ITS | Encounter Summary ---
Author Organization [facility] [place], Address [address] [place] [address] Phone Care Team Providers Care Transit Survey Worker Name Role Phone Pallavi Johnson MD Primary Care Provider [phone] Reason for Referral * Imaging (Routine) - Closed Specialty Diagnoses / Procedures Referred By Sukhi gant Referred To Contact Diagnoses Chronic kidney disease due to hypertension Procedures Renal Artery Duplex Colin Jones MD [address] [place] [address] Phone: tel: fax: Referral ID Status Reason Start Date Expiration Date Visits Re quested Visits Authorized [id number] Closed 09/09/2022 09/09/2023 1 1 * Imaging (Routine) - Closed Specialty Diagnoses / Procedures Referred By Sukhi gant Referred To Contact Diagnoses Right flank pain Procedures Ultrasound renal complete Colin Jones MD [address] [place] [address] Phone: tel: fax: Referral ID Status Reason Start Date Expiration Date Visits Re quested Visits Authorized [id number] Closed 09/03/2022 09/03/2023 1 1 Encounter Details Date Type Department Care Team (Late st Contact Info) Description 08/30/2022 Orders Only [facility] [place], [address] [place] [phone] Colin Jones MD [address] [place] [address] Chronic kidney disease due to hypertension (Primary Dx); Right flank pain Social History Tobacco Use Types Packs/Day Years Used Date Smoking Tobacco: Former Cigarettes 2 22.6 0 10/13/1967 - 06/04/1990 Comments:Smoking History Inf o:Every day Alcohol Use [...] Visit [facility] [place], [address] [place] [phone] Colin Jones MD [address] [place] [phone] Scheduled Orders Name Type Priority Associated Diagnoses Orde r Schedule Ultrasound renal complete Imaging Routine Right flank pain Expected: 09/03/2022, Expires: 09/03/2023 Renal Artery Duplex Imaging Routine Chronic kidney disease due to hypertension Expected: 09/09/2022, Expires: 09/09/2023 documented as of this encounter Procedures Procedure Name Priority Date/Time Associated Diagnosis Comments RENAL FUNCTION PANEL Routine 09/17/2022 12:09 PM EST Chronic kidney disease due to hypertension documented in this encounter Results * (ABNORMAL) Renal Function Panel (09/17/2022 12:09 PM EST) Glucose 81 (70-99) MG/DL [facility] BUN 30(H) (8-23) MG/DL [facility] Creatinine 2.1(H) (0.7-1.2) MG/DL [facility] Sodium 140 (133-145) MMOL/L [facility] Potassium 3.5(L) (3.6-5.2) MMOL/L [facility] Chloride 101 (98-107) MMOL/L [facility] Bicarbonate (CO2) 28 (22-29) MMOL/L [facility] Anion Gap 11 (4-17) [facility] Albumin 4.5 (3.4-4.8) GM/DL [facility] Calcium 9.8 (8.6-10.5) MG/DL [facility] Phosphorus, Serum 2.5 (2.5-4.5) MG/DL [facility] Est GFR Non 33 ML/MIN/1.7 3 M2 [facility] Comment: Creatinine based estimated glomerular filtration (eGFR) in adults is calculated using the National Kidney Foundation recommended 2020 CKD-EPI equation. Estimates GFR from serum creatinine, age and sex. Testing performed or reported by [facility], a Service of [facility], [address] [place] [address] Alta Feliciano MD, Buffing Wheel Inspector [facility]# [id number] Blood (Blood, Venous) 09/17/2022 12:09 PM EST 09/17/2022 12:10 PM EST us Colin Jones MD LAB BLOOD ORDERABLES Final Re sult [facility] documented in this encounter Visit Diagnoses Diagnosis Chronic kidney disease due to hypertension- Primary Right flank pain documented in this encounter Care Teams Transit Survey Worker Relationship Specialty Start Date End Date Pallavi Johnson MD [address] [place] [address] PCP - General 08/17/19 documented as of this encounter
--- OUTSIDE RECORDS SUMMARY | 2025-01-04 17:11 | XMS_ITS | Encounter Summary ---
Author Organization [facility] [place], Address [address] [place] [address] Phone Care Team Providers Care Flying Squad Salesperson Name Role Phone Pallavi Johnson MD Primary Care Provider [phone] Encounter Details Date Type Department Care Team (Late st Contact Info) Description 12/03/2024 Documentation Only [facility] [address] [address] Anamaria Chirinos [address] [place] [address] Social History Tobacco Use Types [...] Visit [facility] [address] [address] Colin Jones MD [address] [facility] [facility] [address] [place] [address] documented as of this encounter Visit Diagnoses Not on filedocumented in this encounter Care Teams Flying Squad Salesperson Relationship Specialty Start Date End Date Pallavi Johnson MD [address] [place] [phone] PCP - General 08/17/19 documented as of this encounter
--- OUTSIDE RECORDS SUMMARY | 2025-01-04 17:11 | XMS_ITS | Encounter Summary ---
Author Organization [facility] [place], Address [address] [place] [address] Phone Care Team Providers Care Road Production General Manager Name Role Phone Pallavi Johnson MD Primary Care Provider [phone] Encounter Details Date Type Department Care Team (Late st Contact Info) Description 01/27/2024 Documentation Only [facility] [address] [place] [address] Anamaria Chirinos [address] [place] [address] Social History Tobacco Use Types [...] Visit [facility] [address] [place] [address] Colin Jones MD [address] [place] [address] documented as of this encounter Visit Diagnoses Not on filedocumented in this encounter Care Teams Road Production General Manager Relationship Specialty Start Date End Date Pallavi Johnson MD [address] [place] [address] PCP - General 08/17/19 documented as of this encounter
--- OUTSIDE RECORDS SUMMARY | 2025-01-04 17:11 | XMS_ITS | Encounter Summary ---
Author Organization [facility], Address [address] [place] [address] Phone Care Team Providers Care Industrial Gas Servicer Name Role Phone Pallavi Johnson MD Primary Care Provider Encounter Details Date Type Department Care Team (Late st Contact Info) Description 12/03/2024 Documentation Only [facility] [address] [place] [address] Anamaria Chirinos [address] [place] [address] Social History Tobacco Use Types [...] [facility] [address] [place] [address] Colin Jones MD [address] [place] [address] documented as of this encounter Visit Diagnoses Not on filedocumented in this encounter Care Teams Industrial Gas Servicer Relationship Specialty Start Date End Date Pallavi Johnson MD [address] [place] [phone] PCP - General 08/17/19 documented as of this encounter
--- OUTSIDE RECORDS SUMMARY | 2025-01-04 17:11 | XMS_ITS | Encounter Summary ---
Author Organization [facility], Address [address] [place] [address] Phone Care Team Providers Care Community Health Education Coordinator Name Role Phone Pallavi Johnson MD Primary Care Provider [phone] Encounter Details Date Type Department Care Team (Late st Contact Info) Description 12/06/2024 1:30 PM EST Office Visit [facility], [address] [place] [phone] Colin Jones MD [address] [place] [address] [place] [phone] Chronic kidney disease due to hypertension (Primary Dx) Social History Tobacco Use Types Packs/Day Years [...] on file documented as of this encounter Last Filed Vital Signs Vital Sign Reading Time Taken Comments Blood Pressure 144/76 12/06/2024 1:50 PM EST Pulse 79 12/06/2024 1:50 PM EST Temperature - - Respiratory Rate - - Oxygen Saturation - - Inhaled Oxygen Concentration - - Weight - - Height - - Body Mass Index - - documented in this encounter Plan of Treatment Upcoming Encounters Date Type Department Care Team (Late st Contact Info) Description 06/06/2025 3:00 PM EDT Office Visit [facility], [address] [place] [address] Colin Jones MD [address] [place] [phone] Scheduled Orders Name Type Priority Associated Diagnoses Orde r Schedule Phosphorus Lab Routine Chronic kidney disease due to hypertension Expected: 12/06/2024, Expires: 01/03/2026 documented as of this encounter Procedures Procedure Name Priority Date/Time Associated Diagnosis Comments MICROSCOPIC EXAMINATION - DO NOT USE Routine 12/08/2024 10:24 AM EST IRON PANEL (FE, TIBC, TSAT) Routine 12/08/2024 10:24 AM EST Chronic kidney disease due to hypertension PROTEIN / CREATININE RATIO, URINE Routine 12/08/2024 10:24 AM EST Chronic kidney disease due to hypertension URINE ALBUMIN / CREATININE RATIO Routine 12/08/2024 [...] hypertension documented in this encounter Results * Microscopic Examination (12/08/2024 10:24 AM EST) WBC, Urine None seen 0 - 5 /hpf [facility] RBC, Urine None seen 0 - 2 /hpf [facility] Squamous Epithelial, Urine None seen 0 - 10 /hpf [facility] Casts None seen None seen /lpf [facility] Bacteria, Urine None seen None seen/Few [facility] 12/08/2024 10:2 4 AM EST 12/08/2024 Colin Jones MD LAB MICROBIOLOGY - GENERAL OR DERABLES Final Result Performing Organization Address [facility] Co de Phone Number [facility] [address] [place] [phone] * (ABNORMAL) Urine Albumin / Creatinine Ratio (12/08/2024 10:24 AM EST) Pathologist [facility] Albumin, Urine 547.7 Not Estab. ug/mL [facility] Comment: Results confirmed on dilution. Albumin/Creatin ine Ratio 2,621(H) 0 - 29 mg/g creat [facility] Comment: ? Normal: ?0 - ??29 ? Moderately increased: 30 - 300 ? Severely increased: ? >300 Urine (Urine, Clean Catch) 12/08/2024 10:24 AM EST 12/08/2024 us Colin Jones MD LAB URINE ORDERABLES Final Re sult [facility] [address] [place] [address] * Vitamin D 25 Hydroxy (12/08/2024 10:24 AM EST) Vitamin D, 25-OH, Total 37.7 30.0 - 100.0 ng/mL [facility] Comment: Vitamin D deficiency has been defined by the [place] of Medicine and an Endocrine Society practice guideline as a level of serum 25-OH vitamin D less than 20 ng/mL (1,2). The Endocrine Society went on to further define vitamin D insufficiency as a level between 21 and 29 ng/mL (2). 1. IOM ([place] of Medicine). 2010. Dietary reference ?? intakes for calcium and D. [place]: The ?? National [employer] Press. 2. Brianna MF, Yosi ROGERS, Alexy MORALEZ, et al. ?? Evaluation, treatment, and prevention of vitamin D ?? deficiency: an Endocrine Society clinical practice ?? guideline. JCEM. 2010; 96(7):1911-30. Blood (Blood, Venous) 12/08/2024 10:24 AM EST 12/08/2024 us Colin Jones MD LAB BLOOD ORDERABLES Final Re sult [facility] [address] [place] [address] * (ABNORMAL) Protein, Total, Random Urine w/Creatinine (Protein/Creat Ratio) (12/08/2024 10:24 AM EST) Creatinine, Ur 20.9 Not Estab. mg/dL [facility] Protein, Ur 94.7 Not Estab. mg/dL [facility] Urine Protein/Creati nine Ratio 4,531(H) 0 - 200 mg/g creat [facility] Urine (Urine, Clean Catch) 12/08/2024 10:24 AM EST 12/08/2024 us Colin Jones MD LAB URINE ORDERABLES Final Re sult [facility] [address] [place] [address] * (ABNORMAL) Urinalysis with microscopic (12/08/2024 10:24 AM EST) Specific [place], Urine 1.010 1.005 - 1.030 [facility] pH Urine 6.5 5.0 - 7.5 [facility] Color, Urine Yellow Yellow [facility] Appearance Urine Clear Clear [facility] [phone] WBC Esterase Urine Negative Negative [facility] Protein, Ur 2+(A) Negative/Tra ce [facility] Glucose, Ur 2+(A) Negative [facility] Ketones, Urine Negative Negative [facility] Blood Urine Negative Negative [facility] Bilirubin Urine Negative Negative [facility] Urobilinogen Urine 0.2 0.2 - 1.0 mg/dL [facility] Nitrite, Urine Negative Negative [facility] Microscopic Examination See below: [facility] Comment:Microscopic was winston cated and was performed. Urine (Urine, Clean Catch) 12/08/2024 10:24 AM EST 12/08/2024 us Colin Jones MD LAB URINE ORDERABLES Final Re sult [facility] [address] [place] [address] * (ABNORMAL) Renal Function Panel (12/08/2024 10:24 AM EST) Glucose 106(H) 70 - 99 mg/dL [facility] BUN 29(H) 8 - 27 mg/dL [facility] Creatinine 2.28(H) 0.76 - 1.27 mg/dL [facility] eGFR CKD-EPI CR 2020 30(L) >59 mL/min/1.7 3 [facility] BUN/Creatinine Ratio 13 10 - 24 [facility] Sodium 140 134 - 144 mmol/L [facility] Potassium 4.8 3.5 - 5.2 mmol/L [facility] Chloride 101 96 - 106 mmol/L [facility] Bicarbonate (CO2) 22 20 - 29 mmol/L [facility] Calcium 9.8 8.6 - 10.2 mg/dL [facility] Albumin 4.2 3.8 - 4.8 g/dL [facility] Phosphorus 2.9 2.8 - 4.1 mg/dL [facility] Blood (Blood, Venous) 12/08/2024 10:24 AM EST 12/08/2024 us Colin Jones MD LAB BLOOD ORDERABLES Final Re sult [facility] [address] [place] [address] * PTH, Intact (12/08/2024 10:24 AM EST) PTH 58 15 - 65 pg/mL [facility] Blood (Blood, Venous) 12/08/2024 10:24 AM EST 12/08/2024 Colin Jones MD LAB BLOOD ORDERABLES Final Re sult Performing Organization Address [facility]/ZIP Co de Phone Number [facility] [address] [place] [address] * Iron Panel (Fe, TIBC, TSAT) (12/08/2024 10:24 AM EST) TIBC 352 250 - 450 ug/dL [facility] UIBC 277 111 - 343 ug/dL [facility] Iron 75 38 - 169 ug/dL [facility] Iron Saturation (TSat) 21 15 - 55 % [facility] Blood (Blood, Venous) 12/08/2024 10:24 AM EST 12/08/2024 Colin Jones MD LAB BLOOD ORDERABLES Final Re sult Performing Organization Address [facility] Co de Phone Number [facility] [address] [place] [address] * (ABNORMAL) Ferritin (12/08/2024 10:24 AM EST) Ferritin 22(L) 30 - 400 ng/mL [facility] Blood (Blood, Venous) 12/08/2024 10:24 AM EST 12/08/2024 Colin Jones MD LAB BLOOD ORDERABLES Final Re sult Performing Organization Address [facility]/ZIP Co de Phone Number [facility] [address] [place] [address] * CBC and Differential (12/08/2024 10:24 AM EST) [facility] WBC 6.0 3.4 - 10.8 x10E3/uL [facility] RBC 5.28 4.14 - 5.80 x10E6/uL [facility] Hemoglobin 15.2 13.0 - 17.7 g/dL [facility] Hematocrit 46.7 37.5 - 51.0 % [facility] MCV 88 79 - 97 fL [facility] MCH 28.8 26.6 - 33.0 pg [facility] MCHC 32.5 31.5 - 35.7 g/dL [facility] RDW 14.8 11.6 - 15.4 % [facility] Platelets 183 150 - 450 x10E3/uL [facility] Neutrophils Relative 57 Not Estab. % [facility] Lymphocytes Relative 26 Not Estab. % [facility] Monocytes 12 Not Estab. % [facility] Eosinophils Relative 4 Not Estab. % [facility] Basophils Relative 1 Not Estab. % [facility] Neutrophils Absolute 3.4 1.4 - 7.0 x10E3/uL [facility] Lymphocytes Absolute 1.6 0.7 - 3.1 x10E3/uL [facility] Monocytes Absolute 0.7 0.1 - 0.9 x10E3/uL [facility] Eosinophils Absolute 0.2 0.0 - 0.4 x10E3/uL [facility] Basophils Absolute 0.1 0.0 - 0.2 x10E3/uL [facility] Immature Granulocytes 0 Not Estab. % [facility] Immature Grans (Absolute) 0.0 0.0 - 0.1 x10E3/uL [facility] Blood (Blood, Venous) 12/08/2024 10:24 AM EST 12/08/2024 us Colin Jones MD LAB BLOOD ORDERABLES Final Re sult [facility] [address] [place] [phone] documented in this encounter Visit Diagnoses Diagnosis Chronic kidney disease due to hypertension- Primary documented in this encounter Care Teams Community Health Education Coordinator Relationship Specialty Start Date End Date Pallavi Johnson MD [address] [place] [phone] PCP - General 08/17/19 documented as of this encounter
--- OUTSIDE RECORDS SUMMARY | 2025-01-04 17:11 | XMS_ITS | Encounter Summary ---
Author Organization [facility], Address [address] [place] [address] Phone Care Team Providers Care Advisor Advocate Angel Co Founder Name Role Phone Pallavi Johnson MD Primary Care Provider [phone] Encounter Details Date Type Department Care Team (Late st Contact Info) Description 12/03/2024 Documentation Only [facility] [address] [address] Anamaria Chirinos [address] [place] [address] Social History Tobacco Use Types [...] Visit [facility] [address] [address] Colin Jones MD [address] [place] [address] documented as of this encounter Visit Diagnoses Not on filedocumented in this encounter Care Teams Advisor Advocate Angel Co Founder Relationship Specialty Start Date End Date Pallavi Johnson MD [address] [place] [phone] PCP - General 08/17/19 documented as of this encounter
--- OUTSIDE RECORDS SUMMARY | 2025-01-04 17:11 | XMS_ITS | Clinical Summary ---
Author Organization [address] [place] [address] [address] [place] [address] Phone Care Team Providers Care Script Editor Name Role Phone Chas Eaton MD Primary Care Provider [phone] Allergies Active Allergy Reactions Criticality Noted Date Comments Bee Venom Protein (Honey Bee) Anaphylaxis High 01/24/2021 Nsaids (Non-Steroidal Anti-Inflammatory Drug) Other 01/24/2021 Kidney shut down Oxycodone-Acetaminophen Hallucinations 01/25/20 21 Apap-Fd&C Blue #1-Oxycodone Medications rosuvastatin (CRESTOR) 20 mg tablet Take 1 tablet (20 mg total) by mouth 1 (one) time each day. 4 Active apixaban (Eliquis) 5 mg tablet Take 1 tablet (5 mg total) by mouth 2 (two) times a day. 4 Active amLODIPine (NORVASC) 5 mg tablet Take 1.5 tablets (7.5 mg total) by mouth 1 (one) time each day. 4 Active furosemide (LASIX) 40 mg tablet Take 1 tablet (40 mg total) by mouth 2 (two) times a day. 4 Active lisinopril (PRINIVIL,ZESTR IL) 40 mg tablet Take 1 tablet (40 mg total) by mouth 1 (one) time each day. 3 Active empagliflozin (Jardiance) 25 mg tablet Take 1 tablet (25 mg total) by mouth 1 (one) time each day. Active coenzyme Q-10 10 mg capsule Take by mouth daily. Active metFORMIN XR (GLUCOPHAGE-XR) 500 mg 24 hr tablet Take 500 mg by mouth daily (with breakfast). Active allopurinoL (ZYLOPRIM) 300 mg tablet 1 (one) time each day. Active aspirin 81 mg EC tablet 1 tablet daily. Active multivitamin tablet 1 (one) time each day. Active cholecalciferol (VITAMIN D-3) 50 mcg (2,000 unit) capsule Take by mouth. daily 1 Active ferrous sulfate 325 mg (65 mg elemental iron) tablet Take by mouth. daily 1 Active omega-3 fatty acids 1,000 mg capsule Take by mouth. 2 capsules in the am and 1 capsule in the afternoon 1 Active Active Problems Problem Noted Date Diagnosed Date Ascending aortic aneurysm 01/14/2023 Overview (10/15/2024): 4.3 cm echo 06/2024 Assessment & Plan (10/15/2024 9:21 AM EST): The patient's ascending aorta is mildly enlarged and stable across multiple echocardiograms. Continue periodic surveillance Coronary artery disease 06/21/2022 Overview (10/15/2024): 3V CABG 01/2015 FRAGA to the diagonal, SVG to the circumflex and RCA Assessment & Plan (10/15/2024 9:21 AM EST): The patient is status post multivessel CABG without recurrence of his anginal symptoms. His LVEF is preserved. Continue current treatment plan with aspirin, calcium channel kervin, JOSE inhibitor, SGLT2 and statin. He is not currently on a beta-kervin, but without anginal symptoms and with preserved LVEF, no need to initiate at this time. Continue to follow his symptoms. He is encouraged to remain as active as possible given over the winter for general health and wellbeing. Diastolic dysfunction 06/21/2022 Venous insufficiency 06/21/2022 Overview (09/01/2024): Last Assessment & Plan: Bilateral lower extremity edema with diastolic dysfunction and likely venous insufficiency given appearance of legs. Will order venous reflux study. Compression stockings may be beneficial. Continue to elevate legs during the day and at night when able. Low-salt diet. Essential hypertension 04/11/2021 Assessment & Plan (10/15/2024 9:21 AM EST): Blood pressure is well-controlled on current regimen of calcium channel kervin, JOSE inhibitor and SGLT2. Continue Mixed hyperlipidemia 04/11/2021 Assessment & Plan (10/15/2024 9:21 AM EST): Well-controlled lipid profile on current dose statin. Continue Paroxysmal atrial fibrillation 04/11/2021 Overview (10/15/2024): Anticoagulated with apixaban Assessment & Plan (10/15/2024 9:21 AM EST): The patient clinically has not had any recurrence of his atrial fibrillation. He is in sinus rhythm and auto rate controlled on EKG today. He remains anticoagulated with apixaban. He does not meet criteria for dose reduction given his age and weight. He has not had any bleeding issues. Continue current treatment plan Encounters Date Type Department Care Team Description 10/15/2024 8:40 AM EST Office Visit [facility] [address] [address] [place] [address] Soo Avila NP Coronary artery disease involving [place] heart with other form of angina pectoris, unspecified vessel or lesion type (CMS/HCC) (Primary Dx); Aneurysm of ascending aorta without rupture (CMS/HCC); Essential hypertension; Paroxysmal atrial fibrillation (CMS/HCC); Mixed hyperlipidemia from Last 3 Months Immunizations Name Administration Dates Next Due [employer] (ages 12 & older) MARYSOL S-CoV-2 COVID-19, mRNA, LNP-S, sean-sucrose, preservative free 05/25/2022 Pfizer SARS-CoV-2 COVID-19, mRNA, LNP-S, preservative free 08/30/2021,01/22/2021,01/01/2021 Surgical History Surgery Date Site/Laterality Comments CORONARY ARTERY BYPASS GRAFT PROCEDURE:CORONARY ARTERY BYPASS GRAFT Medical History Medical History Date Comments Anemia, unspecified DX:Anemia, u nspecified Crohn disease (CMS/HCC) DX:Crohn disease (HCC) DVT (deep venous thrombosis) (CMS/HCC) DX:DVT (deep venous thrombosis) (HCC) Pulmonary embolism DX:Pulmonary embolism (HCC) Atrial fibrillation (CMS/HCC) DX :Atrial fibrillation (HCC) Hypertension DX:Hypertension Hyperlipidemia DX:Hyperlipidemi a Family History Medical History Relation Name Comments Cancer Mother carcinoma of th e thyroid and uterus Cancer Mother's Brother breast Relation Name Status Comments Mother Mother's Brother Social History Tobacco Use Types Packs/Day Years Used Date Smoking Tobacco: Former Smokeless Tobacco: Never Alcohol Use Standard Drinks/Week Comments No 0 (1 standard drink = 0.6 oz pur e alcohol) Sex and Gender Information Value Date Recorded Sex Assigned at Not on file Legal Sex Male 6:34 PM EST Gender Identity Not on file Sexual Orientation Not on file Obstetrics History Last Filed Vital Signs Vital Sign Reading Time Taken Comments Blood Pressure 122/62 10/15/2024 8:23 AM EST Pulse 72 10/15/2024 8:23 AM EST Temperature - - Respiratory Rate - - Oxygen Saturation 96% 10/15/2024 8:23 AM EST Inhaled Oxygen Concentration - - Weight 104 kg (230 lb) 10/15/2024 8:23 AM EST Height 165.1 cm (5' 5 ) 10/15/2024 8:23 AM EST Body Mass Index 38.27 10/15/2024 8:23 AM EST Plan of Treatment Upcoming Encounters Date Type Department Care Team (Late st Contact Info) Description 07/08/2025 2:15 PM EDT Office Visit [facility] Oncology [address] [place] [phone] Farideh Gerardo MD [address] [place] [address] Health Maintenance Due Date Last Done Comments Diabetes: Annual Foot Exam 1961 Diabetes: Annual Retina Eye Exam 1960 Zoster Vaccines (2 of 2) 02/05/2020 020, 12/11/2019, 05/31/2019 Abdominal Aortic Aneurysm (AAA) Screen 09/20/2022 Depression Screening 09/20/2022 Falls Risk Assessment 09/20/2022 Hepatitis C Screening 09/20/2022 Social Influencers of Health Screening 09/20/2022 Medicare Annual Wellness Visit 05/28/2024 05/28/2023 Diabetes: Annual GFR (Glomerular Filtration Rate) 09/30/2024 09/30/2023, 03/13/2018 Hypertension/CHF/CAD Annual BMP Blood Test 09/30/2024 09/30/2023, 03/13/2018 Diabetes: Annual Urine Albumin-Creatinine Ratio (uACR) 10/15/2024 Diabetes: Blood Sugar Control Test (HGBA1C) 10/15/2024 01/17/2022 Cholesterol Screening (Lipid Panel) 04/08/2029 04/08/2024 Colorectal Cancer Screening: Colonoscopy 03/28/2031 03/28/2021 DTaP,Tdap,and Td Vaccines (3 - Td or Tdap) 11/28/2033 11/28/2023, 01/12/2007 Pneumococcal Vaccine: 50+ Years Completed 01/06/2018, 12/31/2016 RSV Immunization Patients 60+ Years Old Completed 07/28/2023 COVID-19 Vaccine Completed 07/24/2024, , 05/25/2022, Additional history exists Influenza Vaccine Completed 07/24/2024, , 07/23/2022, Additional history exists HIB Vaccines Aged Out No longer eligi ble based on patient's age to complete this topic HPV Vaccines Aged Out No longer eligi ble based on patient's age to complete this topic Hepatitis A Vaccines Aged Out No long er eligible based on patient's age to complete this topic Hepatitis B Vaccines Aged Out No long er eligible based on patient's age to complete this topic IPV Vaccines Aged Out No longer eligi ble based on patient's age to complete this topic MMR Vaccines Aged Out No longer eligi ble based on patient's age to complete this topic Meningococcal ACWY Vaccine Aged Out N o longer eligible based on patient's age to complete this topic Meningococcal B Vacine Aged Out No lo nger eligible based on patient's age to complete this topic RSV Immunization Patients Under 20 months Aged Out No longer eligible based on patient's age to complete this topic Varicella Vaccines Aged Out No longer eligible based on patient's age to complete this topic Procedures Procedure Name Priority Date/Time Associated Diagnosis Comments ECG 12-LEAD Routine 10/15/2024 9:21 AM EST Coronary artery disease involving [place] heart with other form of angina pectoris, unspecified vessel or lesion type (CMS/HCC) LIPID PANEL Routine 04/08/2024 ANNUAL BMP BLOOD TEST Routine 09/30/2023 COLONOSCOPY Routine 03/28/2021 from Last 3 Months or Most Recently Relevant to Health Maintenance Results * ECG 12 lead (10/15/2024 9:21 AM EST) Ventricular Rate ECG 72 BPM GEMUSE Atrial Rate 72 BPM GEMUSE P-R Interval 168 ms GEMUSE QRS Duration 88 ms GEMUSE Q-T Interval 390 ms GEMUSE QTc 427 ms GEMUSE P Wave [place] 78 degrees GEMUSE R [place] 32 degrees GEMUSE T [place] 97 degrees GEMUSE ECG Interpretation Normal sinus rhythm Abnormal QRS-T angle, consider primary T wave abnormality Abnormal ECG unchanged compared to EKG 03/2024 Confirmed by Neto MCCALL, VON ([id number]) on 10/16/2024 12:37:53 PM GEMUSE 10/15/2024 8:39 AM EST 10/16/2024 12:37 PM EST Soo Avila NP ECG ORDERABLES Edited Result - Final GEMUSE * (ABNORMAL) Lipid panel (04/08/2024) LDL/HDL Ratio 3 0 - 4 Triglycerides 194(A) 0 - 150 mg/dL Cholesterol 118 0 - 200 mg/dL HDL 38(A) >=40 mg/dL LDL Cholesterol 42 0 - 100 mg/dL Blood Venous blood specimen / Unknown Historical Provider LAB BLOOD ORDERABLES Adele l Result * Annual BMP Blood Test (09/30/2023) Annual BMP Blood Test abstracted Historical Provider HEALTH MAINTENANCE Final Result * Colonoscopy (03/28/2021) Pathologist [facility] Colonoscopy no interpretation , abstracted Anatomical Region Laterality Modality Other us Historical Provider HEALTH MAINTENANCE Final Result from Last 3 Months or Most Recently Relevant to Health Maintenance Insurance MEDICARE [facility] Care Teams Script Editor Relationship Specialty Start Date End Date Chas Eaton MD [address] [place] [address] PCP - General 07/09/24
--- OUTSIDE RECORDS SUMMARY | 2025-01-04 17:11 | XMS_ITS | Encounter Summary ---
Author Organization [facility], Address [address] [place] [address] Phone Care Team Providers Care Manager Metrology Name Role Phone Pallavi Johnson MD Primary Care Provider [phone] Encounter Details Date Type Department Care Team (Late st Contact Info) Description 03/16/2024 Documentation Only [facility] [address] [place] [address] Anamaria Chirinos [address] [place] [address] Social History Tobacco Use Types [...] Visit [facility] [address] [place] [place] [address] Colin Jones MD [address] [place] [address] documented as of this encounter Visit Diagnoses Not on filedocumented in this encounter Care Teams Manager Metrology Relationship Specialty Start Date End Date Pallavi Johnson MD [address] [place] [phone] PCP - General 08/17/19 documented as of this encounter
--- OUTSIDE RECORDS SUMMARY | 2025-01-04 17:11 | XMS_ITS | Encounter Summary ---
Author Organization [facility], Address [address] [place] [address] Phone Care Team Providers Care Environmental Inspector Name Role Phone Pallavi Johnson MD Primary Care Provider [phone] Encounter Details Date Type Department Care Team (Late st Contact Info) Description 03/16/2024 Documentation Only [facility] [address] [place] [address] Anamaria Chirinos [address] [place] [address] Social History Tobacco Use Types [...] Visit [facility] [address] [place] [address] Colin Jones MD [address] [place] [address] documented as of this encounter Visit Diagnoses Not on filedocumented in this encounter Care Teams Environmental Inspector Relationship Specialty Start Date End Date Pallavi Johnson MD [address] [place] [id number] PCP - General 08/17/19 documented as of this encounter
--- OUTSIDE RECORDS SUMMARY | 2025-01-04 17:11 | XMS_ITS | Encounter Summary ---
Author Organization [facility], Address [address] [place] [address] Phone Care Team Providers Care Manager Car Name Role Phone Pallavi Johnson MD Primary Care Provider [phone] Encounter Details Date Type Department Care Team (Late st Contact Info) Description 12/03/2024 Documentation Only [facility] [address] [place] [address] Anamaria Chirinos [address] [place] [address] Social History Tobacco Use Types [...] Visit [facility] [address] [place] [address] Colin Jones MD [address] [place] [address] documented as of this encounter Visit Diagnoses Not on filedocumented in this encounter Care Teams Manager Car Relationship Specialty Start Date End Date Pallavi Johnson MD [address] [place] [id number] PCP - General 08/17/19 documented as of this encounter
--- OUTSIDE RECORDS SUMMARY | 2025-01-04 17:11 | XMS_ITS | Encounter Summary ---
Author Organization [facility], Address [address] [place] [address] Phone Care Team Providers Care Financial Supervisor Name Role Phone Pallavi Johnson MD Primary Care Provider [phone] Encounter Details Date Type Department Care Team (Late st Contact Info) Description 12/06/2024 Documentation Only [facility] [address] [address] Anamaria Chirinos [address] [place] [address] Social History Tobacco Use Types [...] Visit [facility] [address] [address] Colin Jones MD [address] [place] [address] documented as of this encounter Visit Diagnoses Not on filedocumented in this encounter Care Teams Financial Supervisor Relationship Specialty Start Date End Date Pallavi Johnson MD [address] [place] [id number] PCP - General 08/17/19 documented as of this encounter
--- OUTSIDE RECORDS SUMMARY | 2025-01-04 17:11 | XMS_ITS | Clinical Summary ---
Author Organization [facility] Address [address] [place] [address] Care Team Providers Care Neurobiologist Name Role Phone Chas Eaton MD Primary Care Provider [phone] Allergies Active Allergy Reactions Criticality Noted Date Comments Bee Sting 06/25/2017 Ibuprofen 06/26/2018 Medications Medication Sig Dispensed Refills Start Date End Date Status furosemide (LASIX) 40 MG tablet Take 1 tablet (40 mg total) by mouth 2 (two) times a day. 0 Active aspirin EC 81 MG tablet Take 1 tablet (81 mg total) by mouth daily. 0 Active Multiple Vitamin (MULTI VITAMIN DAILY PO) Take by mouth. 0 Active cholecalciferol (VITAMIN D3) 1000 UNITS tablet Take 1 tablet (1,000 Units total) by mouth daily. 0 Active Coenzyme Z50-Rwoddreapmzrr (CO Q-10 PLUS PO) Take by mouth. 0 Active amLODIPine (NORVASC) tablet 2.5 mg Take 1 tablet (2.5 mg total) by mouth daily. 0 Active ferrous sulfate 324 (65 Fe) MG EC tablet Take 65 mg by mouth once a week. 0 Active lisinopril (PRINIVIL,ZESTRIL) tablet 40 mg Take 1 tablet (40 mg total) by mouth daily. 0 Active allopurinol (ZYLOPRIM) 300 MG tablet Take 1 tablet (300 mg total) by mouth daily. 0 Active metFORMIN (GLUCOPHAGE) tablet 500 mg Take 1 tablet (500 mg total) by mouth 2 (two) times a day with meals. 0 Active rosuvastatin (CRESTOR) tablet 20 mg Take 1 tablet (20 mg total) by mouth daily. 0 Active apixaban (Eliquis) 5 MG TABS tablet Take 1 tablet (5 mg total) by mouth every 12 (twelve) hours. 0 Active Empagliflozin (Jardiance) 25 MG TABS Take by mouth. 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 Deep vein thrombosis (DVT) of left lower extremi ty 06/25/2017 Pulmonary embolism and infarction, iatrogenic Family History Medical History Relation Name Comments Cancer Maternal Uncle breast Cancer Mother carcinoma of th e thyroid and uterus Relation Name Status Comments Maternal Uncle Mother Social History Tobacco Use Types Packs/Day Years Used Date Smoking Tobacco: Former Smokeless Tobacco: Never Alcohol Use Standard Drinks/Week Comments No 0 (1 standard drink = 0.6 oz pur e alcohol) Sex and Gender Information Value Date Recorded Sex Assigned at Not on file Gender Identity Not on file Sexual Orientation Not on file Job Start Date Occupation Industry Not on file Not on file Not on file Last Filed Vital Signs Vital Sign Reading Time Taken Comments Blood Pressure 163/84 07/09/2024 2:36 PM EDT Pulse 63 07/09/2024 2:36 PM EDT Temperature 36.3 ??C (97.4 ??F) 07/09/2024 2:36 PM ED T Respiratory Rate - - Oxygen Saturation 97% 07/09/2024 2:36 PM EDT Inhaled Oxygen Concentration - - Weight 100.5 kg (221 lb 9.6 oz) 07/09/2024 2:36 PM EDT Height 166.4 cm (5' 5.5 ) 07/09/2024 2:36 PM EDT Body Mass Index 36.32 07/09/2024 2:36 PM EDT Plan of Treatment Health Maintenance Due Date Last Done Comments Hepatitis C Screening 1950 Depression Screening 1963 Preventative Health Evaluation 1969 Colon Cancer Screening (Colonoscopy) 1996 Fall Risk Assessment 2016 DTap / Tdap / Td (1 - Tdap) 11/29/2023 11/28/2023, 0 01/12/2007 COVID-19 Vaccine ( season) 2024 07/28/2023, 05/25/2022, 08/30/2021, Additional history exists Influenza Vaccine (#1) 2024 3, 07/23/2022, 07/19/2021, Additional history exists Pneumococcal Vaccine Completed 01/06/2018, 01/01/20 17 Shingrix-Zoster Vaccine Completed 12/11/2019, 05/31 RSV Adult > 60+ Yrs or Completed 07/28/2023 Hepatitis B Vaccines Aged Out No long er eligible based on patient's age to complete this topic RSV Ped < 20 months Aged Out No longe r eligible based on patient's age to complete this topic Care Teams Neurobiologist Relationship Specialty Start Date End Date Chas Eaton MD [address] [facility] [place] [address] PCP - General Internal Medicine 07/09/24
--- OUTSIDE RECORDS SUMMARY | 2025-01-04 17:11 | XMS_ITS | Encounter Summary ---
Author Organization [facility], Address [address] [place] [address] Phone Care Team Providers Care Concrete Block Maker Name Role Phone Pallavi Johnson MD Primary Care Provider [phone] Encounter Details Date Type Department Care Team (Late st Contact Info) Description 01/27/2024 Documentation Only [facility] [address] [place] [address] Anamaria Chirinos [address] [place] [address] Social History Tobacco Use Types [...] Visit [facility] [address] [place] [address] Colin Jones MD [address] [place] [address] documented as of this encounter Visit Diagnoses Not on filedocumented in this encounter Care Teams Concrete Block Maker Relationship Specialty Start Date End Date Pallavi Johnson MD [address] [place] [phone] PCP - General 08/17/19 documented as of this encounter
--- OUTSIDE RECORDS SUMMARY | 2025-01-04 17:12 | XMS_ITS | Encounter Summary ---
Author Organization [facility], Address [address] [place] [address] Phone Care Team Providers Care Supervisor Beehive Kiln Name Role Phone Pallavi Johnson MD Primary Care Provider [phone] Encounter Details Date Type Department Care Team (Late st Contact Info) Description 05/23/2020 Orders Only [facility] [address] [place] [address] Zeferino Adkins MD Chronic kidney disease stage 3 (HCC); Isolated proteinuria; Chronic kidney disease due to hypertension; Coronary arteriosclerosis, not otherwise specified; Acute injury of kidney (HCC); History of coronary artery bypass grafting; 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
== END 2025-01-04 16:20 | disposition home or self-care (01) ==
LOC: HO.HUSH 13:51
PROVIDERS: PCP Family Medicine; Visit Provider Urology
DX: C61 Malignant neoplasm of prostate (principal)
CPT/HCPCS: 99213; G2211

== ENCOUNTER → 2025-01-04 13:51 | Outpatient (BNVA) | payer MEDICARE, SELFPAY | PROVIDERS: PCP Family Medicine; Visit Provider Urology ==